=== PATIENT | male | born 1985 | race African-American/Black ===

== ENCOUNTER 2017-06-04 19:13 | Inpatient (IN) | payer SELFPAY ==
[2017-06-04 19:29] LABS: ADD MAN DIFF? NO
[2017-06-04 19:30] LABS: BASO % 1 % (0-3); EOS % 0 % (0-3); HEMATOCRIT 45.5 % (39.0-53.0); HEMOGLOBIN 15.6 g/dL (13.0-17.5); LYMPH # 2.3 x10^3/uL (1.0-4.8); LYMPH % 34 % (24-48); MEAN CORPUSCULAR HEMOGLOBIN 31 pg (25-35); MEAN CORPUSCULAR HGB CONC 34 g/dL (31-37); MEAN CORPUSCULAR VOLUME 91 fL (79-100); MONO # 0.7 x10^3/uL (0.0-1.1); MONO % 10 % (0-9); NEUT # 3.7 x10^3uL (1.8-7.7); NEUT % 55 % (31-73); PLATELET COUNT 262 x10^3/uL (140-400); RED CELL DISTRIBUTION WIDTH 12.8 % (11.5-14.5); WHITE BLOOD COUNT 6.7 x10^3/uL (4.0-11.0)
[2017-06-04] MEDS ORDERED: MIDAZOLAM HCL/PF 2 MG/2 ML VIAL. IV (19:30)
[2017-06-04 19:46] LABS: ALBUMIN 3.5 g/dL (3.4-5.0); ALK PHOS 85 U/L (46-116); ALT (SGPT) 37 U/L (16-63); ANION GAP 8 (6-14); AST (SGOT) 13 U/L (15-37); BLOOD UREA NITROGEN 8 mg/dL (8-26); CARBON DIOXIDE 28 mmol/L (21-32); CHLORIDE 96 mmol/L (98-107); CREATININE 1.2 mg/dL (0.7-1.3); DIRECT BILIRUBIN 0.1 mg/dL (0.0-0.2); GFR 69.7; LIPASE 145 U/L (73-393); POTASSIUM 3.8 mmol/L (3.5-5.1); SODIUM 132 mmol/L (136-145); TOTAL BILIRUBIN 0.5 mg/dL (0.2-1.0); TOTAL PROTEIN 7.1 g/dL (6.4-8.2)
[2017-06-04 19:47] LABS: TROPONINI < 0.017 ng/mL (0.000-0.055)
[2017-06-04 19:50] LABS: GLUCOSE 602 mg/dL (70-99)
[2017-06-04] MEDS ORDERED: ONDANSETRON PF 4 MG/2 ML VIAL. IV (20:00)
[2017-06-04] MEDS ORDERED: NITROGLYCERIN SUBLINGUAL 0.4 MG BOTTLE OF 25. SL (20:00)
[2017-06-04] MEDS: ASPIRIN CHEWABLE 81 MG TABLET. PO (20:36)
[2017-06-04] MEDS: IV NORMAL SALINE 1000ML BAG 1,000 ML IV (20:37)
[2017-06-04] MEDS: INSULIN REGULAR 100 UNIT/ML 10ML VIAL. IV (20:38)
[2017-06-04] MEDS: MORPHINE SULFATE 4 MG/ML DISP.SYRIN. IV (21:09)
[2017-06-04 21:18] LABS: POC GLUCOSE 263 mg/dL (70-99)
[2017-06-04 23:26] LABS: TROPONINI < 0.017 ng/mL (0.000-0.055)
[2017-06-05] MEDS: IV NORMAL SALINE 1000ML BAG 1,000 ML IV ×4 (00:12→15:53)
[2017-06-05] MEDS ORDERED: PNEUMOCOCCAL VAX SCREEN BY RX. MC (00:45)
[2017-06-05 05:03] LABS: ADD MAN DIFF? NO
[2017-06-05 05:27] LABS: BASO % 1 % (0-3); EOS % 0 % (0-3); HEMATOCRIT 44.3 % (39.0-53.0); HEMOGLOBIN 14.7 g/dL (13.0-17.5); LYMPH # 2.3 x10^3/uL (1.0-4.8); LYMPH % 45 % (24-48); MEAN CORPUSCULAR HEMOGLOBIN 30 pg (25-35); MEAN CORPUSCULAR HGB CONC 33 g/dL (31-37); MEAN CORPUSCULAR VOLUME 91 fL (79-100); MONO # 0.5 x10^3/uL (0.0-1.1); MONO % 10 % (0-9); NEUT # 2.3 x10^3uL (1.8-7.7); NEUT % 45 % (31-73); PLATELET COUNT 236 x10^3/uL (140-400); RED BLOOD COUNT 4.88 x10^6/uL (4.30-5.70); WHITE BLOOD COUNT 5.2 x10^3/uL (4.0-11.0)
[2017-06-05 05:40] LABS: ANION GAP 9 (6-14); BLOOD UREA NITROGEN 8 mg/dL (8-26); CALCIUM 8.6 mg/dL (8.5-10.1); CARBON DIOXIDE 28 mmol/L (21-32); CHLORIDE 105 mmol/L (98-107); CREATININE 0.7 mg/dL (0.7-1.3); GFR 157.2; GLUCOSE 293 mg/dL (70-99); POTASSIUM 3.9 mmol/L (3.5-5.1); SODIUM 142 mmol/L (136-145)
[2017-06-05 06:02] LABS: TROPONINI < 0.017 ng/mL (0.000-0.055)
[2017-06-05 07:49] LABS: POC GLUCOSE 242 mg/dL (70-99)
[2017-06-05] MEDS ORDERED: INFLUENZA VAX SCREEN BY RX. MC (09:00)
[2017-06-05] MEDS ORDERED: DEXTROSE 50% 25 GM / 50ML DISP.SYRIN. IV (10:45)
[2017-06-05] MEDS: REGADENOSON 0.4 MG/5 ML DISP.SYRIN. IV (10:59)
[2017-06-05 11:44] LABS: POC GLUCOSE 230 mg/dL (70-99)
[2017-06-05] MEDS: INSULIN ASPART 300 UNITS/3 ML INSULN.PEN SQ ×3 (11:49→21:19)
[2017-06-05 16:53] LABS: POC GLUCOSE 281 mg/dL (70-99)
[2017-06-05] MEDS: metFORMIN 500 MG TABLET PO (16:56)
[2017-06-05] MEDS: FUROSEMIDE 20 MG TABLET PO (17:00)
[2017-06-05] MEDS: CARVEDILOL 6.25 MG TABLET. PO (17:00)
[2017-06-05] MEDS: MORPHINE SULFATE 4 MG/ML DISP.SYRIN. IV (17:36)
[2017-06-05 20:41] LABS: POC GLUCOSE 330 mg/dL (70-99)
[2017-06-05] MEDS ORDERED: [UNRECOGNIZED DRUG - OTHER] SUBCUT (21:00)
[2017-06-05] MEDS: ATORVASTATIN CALCIUM 40 MG TABLET. PO (21:15)
[2017-06-05] MEDS: ONDANSETRON ODT 4 MG TAB.RAPDIS. PO (21:24)
[2017-06-06 07:50] LABS: POC GLUCOSE 288 mg/dL (70-99)
[2017-06-06] MEDS: INSULIN ASPART 300 UNITS/3 ML INSULN.PEN SQ ×2 (07:53→11:53)
[2017-06-06] MEDS: FUROSEMIDE 20 MG TABLET PO (08:41)
[2017-06-06] MEDS: metFORMIN 500 MG TABLET PO (08:41)
[2017-06-06] MEDS: CARVEDILOL 6.25 MG TABLET. PO (08:41)
[2017-06-06] MEDS: ONDANSETRON ODT 4 MG TAB.RAPDIS. PO (08:48)
[2017-06-06] MEDS: FLU VACC QS2017-18 (36MOS+)/PF 0.5 ML SYRINGE. VAX IM (10:48)
[2017-06-06] MEDS: PNEUMOC CONJ VACC 23-VALENT 0.5 ML VIAL. VAX IM (10:51)
[2017-06-06 11:27] LABS: POC GLUCOSE 290 mg/dL (70-99)
== END 2017-06-06 14:00 | disposition home or self-care (01) | DRG 558 ==
LOC: ER 19:13 → 5 NORTH 19:53
DX: M77.9 Enthesopathy, unspecified (principal); E11.65 Type 2 diabetes mellitus with hyperglycemia; E87.1 Hypo-osmolality and hyponatremia; R07.89 Other chest pain; I25.2 Old myocardial infarction; R07.9 Chest pain, unspecified; E78.5 Hyperlipidemia, unspecified; I10 Essential (primary) hypertension; Z83.3 Family history of diabetes mellitus; Z91.19 Patient's noncompliance with other medical treatment and regimen; Z82.49 Family history of ischemic heart disease and other diseases of the circulatory system; Z80.1 Family history of malignant neoplasm of trachea, bronchus and lung; Z80.0 Family history of malignant neoplasm of digestive organs
CPT/HCPCS: 36415; 71045; 73030; 76700; 78452; 80048; 80076; 82962; 83690; 84484; 85025; 90686; 90732; 93005; 93017; 93306; 96374; 96375; 99285; 99285-25; A9500; J1815; J2270; J2785; J7030; Q0162